=== PATIENT | male | born 2000 | race African-American/Black ===

== ENCOUNTER 2020-01-12 17:09 | Emergency (ER) | payer OTHER ==
[2020-01-12] MEDS ORDERED: HYDROCODONE/ACETAMINOPHEN 5-325 MG (6 TAB/ER DISP) PO PRN (17:22)
[2020-01-12] MEDS ORDERED: DIPH/PERTUSS(ACELL)/TETANUS VAC/PF 0.5 ML SYR (>=10YO) IM ONE (17:22)
[2020-01-12] MEDS ORDERED: BACITRACIN ZINC OINTMENT 15 GM TP ONE (17:22)
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
[2020-01-12] MEDS ORDERED: MUPIROCIN CALCIUM 2% CREAM 15 GM ONE (17:38)
[2020-01-12 18:28] VITALS: BP 128/72
== END 2020-01-12 18:27 | disposition home or self-care (01) ==
LOC: ER 17:09
DX: T22.211A Burn of second degree of right forearm, initial encounter (principal); X10.2XXA Contact with fats and cooking oils, initial encounter; Y99.0 Civilian activity done for income or pay; Z23 Encounter for immunization
CPT/HCPCS: 99283; 90471; 90715; J3490

== ENCOUNTER 2020-01-13 09:25 | Emergency (ER) | payer OTHER ==
[2020-01-13 09:30] VITALS: BP 132/74
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
== END 2020-01-13 09:47 | disposition home or self-care (01) ==
LOC: ER 09:25
DX: T22.211D Burn of second degree of right forearm, subsequent encounter (principal); X10.2XXD Contact with fats and cooking oils, subsequent encounter
CPT/HCPCS: 99282